=== PATIENT | female | born 1990 | race Two or more races ===

== ENCOUNTER → 2017-06-21 | Outpatient (REF) | payer BC ==
[2017-06-21 17:13] LABS: BASO # 0.1 10^3/uL (0.0-0.2); BASO % 0.8 % (0.0-1.0); EOS # 0.2 10^3/uL (0.0-0.50); EOS % 2.5 % (0.0-3.0); IMMATURE GRANULOCYTE # 0.1 10^3/uL (0-0); IMMATURE GRANULOCYTE % 0.7 % (0-0); LYMPH # 2.9 10^3/uL (1.5-6.5); LYMPH % 38.2 % (24.0-44.0); MEAN CORPUSCULAR HEMOGLOBIN 31.9 pg (27.0-33.0); MEAN CORPUSCULAR VOLUME 91.2 fl (80.0-96.0); MONO # 0.5 10^3/uL (0.0-0.8); MONO % 6.8 % (0.0-5.0); NEUTROPHILS # 3.8 10^3/uL (1.8-7.7); PLATELET COUNT, AUTOMATED 367 10^3/uL (150-450); RED CELL DISTRIBUTION WIDTH 12.3 % (11.5-14.5); WHITE BLOOD COUNT 7.5 10^3/uL (4.0-10.0)
[2017-06-21 17:30] LABS: ALBUMIN 4.5 GM/DL (3.2-5.2); ALKALINE PHOSPHATASE 70 U/L (45-117); ALT/SGPT 67 U/L (12-78); ANION GAP 7 MEQ/L (8-16); AST/SGOT 31 U/L (7-37); BILIRUBIN,TOTAL 0.5 MG/DL (0.2-1.0); BLOOD UREA NITROGEN 13 MG/DL (7-18); CALCIUM LEVEL 8.7 MG/DL (8.5-10.1); CARBON DIOXIDE LEVEL 31 MEQ/L (21-32); CHLORIDE LEVEL 104 MEQ/L (98-107); CHOLESTEROL LEVEL 228 MG/DL (<200); CREATININE FOR GFR 0.78 MG/DL (0.55-1.02); GLOMERULAR FILTRATION RATE > 60.0 (>60); GLUCOSE, FASTING 93 MG/DL (70-105); POTASSIUM SERUM 4.6 MEQ/L (3.5-5.1); SODIUM LEVEL 142 MEQ/L (136-145); TOTAL PROTEIN 7.5 GM/DL (6.4-8.2); TRIGLYCERIDES LEVEL 165 MG/DL (<150)
== END ==
LOC: M SFHCADAM 09:41
DX: Z00.00 Encounter for general adult medical examination without abnormal findings (principal); E28.2 Polycystic ovarian syndrome; E66.01 Morbid (severe) obesity due to excess calories
CPT/HCPCS: 84443

== ENCOUNTER → 2017-07-10 | Outpatient (CLI) | payer BC | LOC: M ADAMS 13:43 | DX: M54.2 Cervicalgia (principal); E66.01 Morbid (severe) obesity due to excess calories; M54.5 Low back pain | CPT/HCPCS: 72050 ==

== ENCOUNTER → 2017-08-23 | Outpatient (CLI) | payer BC ==
[2017-08-23 16:44] LABS: BASO % 0.5 % (0.0-1.0); EOS % 0.4 % (0.0-3.0); HEMATOCRIT 43.8 % (36.0-47.0); IMMATURE GRANULOCYTE % 0.3 % (0-3.0); LYMPH # 1.8 10^3/uL (1.5-6.5); LYMPH % 22.6 % (24.0-44.0); MEAN CORPUSCULAR HEMOGLOBIN 31.6 pg (27.0-33.0); MEAN CORPUSCULAR HGB CONC 34.2 g/dl (32.0-36.5); MEAN CORPUSCULAR VOLUME 92.2 fl (80.0-96.0); MONO # 0.6 10^3/uL (0.0-0.8); MONO % 6.9 % (0.0-5.0); NEUTROPHILS # 5.5 10^3/uL (1.8-7.7); NEUTROPHILS % 69.3 % (36.0-66.0); PLATELET COUNT, AUTOMATED 381 10^3/uL (150-450); RED BLOOD COUNT 4.75 10^6/uL (4.00-5.40); RED CELL DISTRIBUTION WIDTH 12.8 % (11.5-14.5); WHITE BLOOD COUNT 7.9 10^3/uL (4.0-10.0)
[2017-08-23 17:04] LABS: ALBUMIN 4.9 GM/DL (3.2-5.2); ALBUMIN/GLOBULIN RATIO 1.48 (1.00-1.93); ALKALINE PHOSPHATASE 56 U/L (45-117); ALT/SGPT 87 U/L (12-78); ANION GAP 7 MEQ/L (8-16); AST/SGOT 44 U/L (7-37); BILIRUBIN,TOTAL 0.4 MG/DL (0.2-1.0); BLOOD UREA NITROGEN 11 MG/DL (7-18); CALCIUM LEVEL 9.6 MG/DL (8.5-10.1); CARBON DIOXIDE LEVEL 30 MEQ/L (21-32); CHLORIDE LEVEL 105 MEQ/L (98-107); CREATININE FOR GFR 0.85 MG/DL (0.55-1.30); GLOMERULAR FILTRATION RATE > 60.0 (>60); GLUCOSE, FASTING 98 MG/DL (70-100); LIPASE 104 U/L (73-393); POTASSIUM SERUM 4.1 MEQ/L (3.5-5.1); SODIUM LEVEL 142 MEQ/L (136-145); THYROID STIMULATING HORMONE 0.426 uIU/ML (0.358-3.740); TOTAL PROTEIN 8.2 GM/DL (6.4-8.2)
== END ==
LOC: M ADAMS 09:49
DX: R11.2 Nausea with vomiting, unspecified (principal)
CPT/HCPCS: 83690

== ENCOUNTER → 2017-08-27 | Outpatient (CLI) | payer BC | LOC: M RAD 13:04 | DX: M26.69 Other specified disorders of temporomandibular joint (principal) ==

== ENCOUNTER → 2019-07-25 | Outpatient (CLI) | payer BC ==
[2019-07-25 17:32] LABS: BASO % 0.5 % (0.0-1.0); EOS # 0.1 10^3/uL (0.0-0.5); EOS % 1.7 % (0.0-3.0); HEMATOCRIT 45.5 % (36.0-47.0); HEMOGLOBIN 14.7 g/dl (12.0-15.5); LYMPH # 2.9 10^3/uL (1.5-5.0); LYMPH % 37.7 % (24.0-44.0); MEAN CORPUSCULAR HEMOGLOBIN 31.1 pg (27.0-33.0); MEAN CORPUSCULAR HGB CONC 32.3 g/dl (32.0-36.5); MEAN CORPUSCULAR VOLUME 96.4 fl (80.0-96.0); MONO # 0.7 10^3/uL (0.0-0.8); MONO % 8.9 % (0.0-5.0); NEUTROPHILS % 50.9 % (36.0-66.0); PLATELET COUNT, AUTOMATED 318 10^3/uL (150-450); RED BLOOD COUNT 4.72 10^6/uL (4.00-5.40); WHITE BLOOD COUNT 7.8 10^3/uL (4.0-10.0)
[2019-07-25 18:04] LABS: C REACTIVE PROTEIN QUANTITATIV 0.35 MG/DL (0.00-0.30); CHOLESTEROL LEVEL 198 MG/DL (<200); HDL CHOLESTEROL 60 MG/DL (>40); LDL CHOLESTEROL 113 MG/DL (<100); NON-HDL-C 138 MG/DL; RHEUMATOID FACTOR QUANT < 10.0 IU/ML (<15.0); TRIGLYCERIDES LEVEL 124 MG/DL (<150)
[2019-07-26 05:57] LABS: ERYTHROCYTE SEDIMENTATION RATE 5 mm/hr (0-20)
== END ==
LOC: M LABDRWAD 10:39
PROVIDERS: ATTEND Registered Nurse Community Health
DX: Z13.220 Encounter for screening for lipoid disorders (principal); G56.03 Carpal tunnel syndrome, bilateral upper limbs; M25.532 Pain in left wrist; M25.531 Pain in right wrist

== ENCOUNTER → 2019-08-02 | Outpatient (REF) | payer BC | LOC: M SFHCWAGY 17:17 | PROVIDERS: ATTEND Obstetrics & Gynecology | DX: Z12.4 Encounter for screening for malignant neoplasm of cervix (principal) ==

== ENCOUNTER → 2019-08-10 | Outpatient (CLI) | payer BC ==
[~2019-08-10] MED LIST: CONRAY-43 43% 50ML VIAL (Q9960) As Ordered ONE; ISOVUE-370 76% 100ML VIAL (Q9967) As Ordered ONE
--- NOTE | 2019-08-10 15:56 | REP ---
The procedure was performed by HARSHA Castañeda, under the direct supervision of Dr. Washington. The images were reviewed with Dr. Washington. The patient was referred for a hysterosalpingogram. The referring clinician catheterized the cervix and injected contrast while I obtained fluoroscopic images. The uterine cavity opacifies well and appears normal in configuration with no definite contour abnormalities or filling defect. There is free passage of contrast material through both non dilated fallopian tubes, and there appears to be free intraperitoneal spillage bilaterally. Impression: 1. Bilateral fallopian tubes appear patent. 0.2 minutes of fluoroscopy time was utilized for this procedure. Some fluoroscopic images are performed with last image hold technology. These images require no additional radiation. Reviewed by HARSHA Herrera 08/10/2019 03:35 P Electronically Signed by Chago Washington MD 08/10/2019 03:48 P
== END ==
LOC: M RADPRO 11:59
PROVIDERS: ATTEND Obstetrics & Gynecology
DX: N97.0 Female infertility associated with anovulation (principal)
CPT/HCPCS: 58340; 74740; Q9967

== ENCOUNTER → 2019-08-19 | Outpatient (CLI) | payer BC ==
--- NOTE | 2019-08-20 16:55 | ECGEPIP ---
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 Electronically Signed on 08-20-2019 16:54:46 EST by Ino Knapp
== END ==
LOC: M EKG 12:53
PROVIDERS: ATTEND Orthopaedic Surgery Hand Surgery
DX: Z01.810 Encounter for preprocedural cardiovascular examination (principal); G56.01 Carpal tunnel syndrome, right upper limb; I10 Essential (primary) hypertension

== ENCOUNTER → 2019-09-18 | Outpatient (CLI) | payer BC ==
--- NOTE | 2019-09-18 14:20 | REP ---
Clinical: Cough and shortness of breath . Comparison: None . Technique: PA and lateral. Findings: The mediastinum and cardiac silhouette are normal. The lung roy are clear and without acute consolidation, effusion, or pneumothorax. The skeletal structures are intact and normal. Impression: 1. No acute cardiopulmonary process. Electronically Signed by Ron Fraser MD 09/18/2019 02:12 P
== END ==
LOC: M WUC 13:58
PROVIDERS: ATTEND Physician Assistant
DX: R05 Cough (principal); R06.02 Shortness of breath

== ENCOUNTER → 2019-11-01 | Outpatient (CLI) | payer BC ==
[~2019-11-01] MED LIST changes: +ATEN25TA PO; -CONRAY-43 43% 50ML VIAL (Q9960) As Ordered ONE; +FAMO20TA PO; +FLUO40CA PO; +GABA-843 PO; +HYDR-643 PO; -ISOVUE-370 76% 100ML VIAL (Q9967) As Ordered ONE; +LOSA25TA14 PO; +QUET1TAB7 PO; +VITA50005 PO
== END ==
LOC: M LABSMTC 11:44
PROVIDERS: ATTEND Anesthesiology
DX: Z01.818 Encounter for other preprocedural examination (principal); Z11.59 Encounter for screening for other viral diseases

== ENCOUNTER 2019-11-03 12:10 | Day surgery (SDC) | payer BC ==
[~2019-11-03] VITALS: Ht 157.5 cm; Wt 93.4 kg
[~2019-11-03 12:10] MED LIST changes: +BUPIVACAINE/EPIN 0.25% 30 ML VIAL As Ordered ONE; +LIDOCAINE 1% MDV 20ML VIAL SQ PRN; +LR 1,000 ML IV ONE
[2019-11-03] MEDS ORDERED: MIDAZOLAM INJ 2MG/2ML VIAL (J2250 PER 1MG) As Ordered ONE (13:41)
[2019-11-03] MEDS ORDERED: fentaNYL 100 MCG/2 ML INJECTION (J3010) As Ordered ONE (13:41)
[2019-11-03] MEDS ORDERED: ONDANSETRON 4MG/2ML VIAL As Ordered ONE (13:43)
[2019-11-03] MEDS ORDERED: propofoL 200 MG/20 ML VIAL As Ordered ONE ×2 (13:43→14:20)
[2019-11-03] MEDS ORDERED: dexameTHASONE 4 MG/ML 1ML VIAL (J1100 PER 1MG) As Ordered ONE (13:43)
[2019-11-03] MEDS ORDERED: LIDOCAINE 2% 100MG/5ML SDV (FOR ANES.) As Ordered ONE (13:43)
[2019-11-03] MEDS ORDERED: ACETAMINOPHEN 1000MG 100ML IV BTL (OFIRMEV) (J0131 PER 10MG) As Ordered ONE (14:23)
[2019-11-03] MEDS ORDERED: ePHEDrine SULFATE 25 MG/5 ML(5MG/ML) SYRINGE As Ordered ONE (14:51)
[2019-11-03] MEDS: oxyCODONE 5MG TAB PO PRN ×2 (15:19→16:10)
[2019-11-03] MEDS: fentaNYL 100 MCG/2 ML INJECTION (J3010) IV PRN ×2 (15:22→15:28)
[2019-11-03] MEDS ORDERED: ONDANSETRON 4MG/2ML VIAL IV PRN (15:30)
[2019-11-03] MEDS ORDERED: LR 1,000 ML IV SCH (15:30)
[2019-11-03 17:45] VITALS: BP 130/76
--- NOTE | 2019-11-07 14:02 | RO ---
DATE OF PROCEDURE: 11/03/2019 PREPROCEDURE DIAGNOSIS: Right carpal and cubital tunnel syndrome. POSTPROCEDURE DIAGNOSIS: Right carpal and cubital tunnel syndrome. PROCEDURE: Right endoscopic carpal tunnel release and open cubital tunnel release SURGEON: Dr. Yassine Hermosillo. HEAD OF STOCK: DON Van who was essential for retraction during rudd portions of the procedure. ANESTHESIA: General. ESTIMATED BLOOD LOSS: Minimal. TOURNIQUET TIME: Approximately 25 minutes. PREOPERATIVE ANTIBIOTICS: None. INDICATION: This is a 29-year-old female who failed nonoperative modes of treatment. We discussed the risks and benefits of surgical release, including, but not limited to, infection, damage to surrounding structures, incomplete relief, and patient wishes to proceed. DESCRIPTION OF PROCEDURE: The patient was brought back to the operating room (OR) in the supine position. Underwent general anesthesia. At which point, the right arm was prepped and draped in the usual fashion. We had a time-out confirming site, side and surgery. Once all in agreement, we injected 20 mL of 0.25% Marcaine with epinephrine local injection overlying the surgical incisions. We then made a transverse incision over the palmaris longus, retracted it out radially and sharply incised through the antebrachial fascia, elevated with a two-prong skin hook. Inserted the dilator and synovial stripper and endoscopic camera. Once the median nerve identified and safely out of view, we released the transverse carpal ligament from distal to proximal. Once this was adequately released, we irrigated the wound thoroughly, closed with #3-0 Vicryl, #3-0 Prolene, Mastisol. Steri-Strips and gauze, Tegaderm. We then turned our attention to the elbow and made a longitudinal incision between the medial epicondyle and the olecranon. Sharply dissected through the subcutaneous tissue, careful to monitor for the medial antebrachial cutaneous nerve. We identified the ulnar nerve at the proximal extent of the incision anterior to the medial head of the triceps. We then released it proximally off the intermuscular system and distally throughout Banuelos ligament and the superficial and deep fascia of the flexor carpi ulnaris (FCU). At this point, we did a thorough neurolysis, and transposed the nerve anteriorly over the medial epicondyle. Ranged the elbow. We were happy with its positioning and no further compression. Closed the Banuelos ligament posteriorly with #3-0 Prolene. At which point, irrigated the wound thoroughly, closed with #3-0 Vicryl, subcuticular and #3-0 Monocryl, Mastisol, Steri-Strips, gauze, Tegaderm. Placed the Kerlix and ramila over top. The tourniquet was let down. The patient was awakened and taken to the postanesthesia care unit (PACU) in stable condition. POSTOP PLAN: The patient will work on pain control and range of motion. We will see her in 2 weeks for wound check at that time.
== END 2019-11-03 17:50 | disposition home or self-care (01) ==
LOC: M SDC 12:10
PROVIDERS: ATTEND Orthopaedic Surgery Hand Surgery
DX: G56.01 Carpal tunnel syndrome, right upper limb (principal); G56.21 Lesion of ulnar nerve, right upper limb; I10 Essential (primary) hypertension; K21.9 Gastro-esophageal reflux disease without esophagitis; R51 Headache; Z79.899 Other long term (current) drug therapy; F12.10 Cannabis abuse, uncomplicated
CPT/HCPCS: 29848; 64718; J0131; J1100; J2250; J2405; J3010

== ENCOUNTER 2019-12-21 22:29 | Emergency (ER) | payer BC ==
[~2019-12-21] VITALS: Ht 157.5 cm; Wt 96.6 kg
[~2019-12-21 22:29] MED LIST changes: -BUPIVACAINE/EPIN 0.25% 30 ML VIAL As Ordered ONE; -LIDOCAINE 1% MDV 20ML VIAL SQ PRN; -LR 1,000 ML IV ONE
[2019-12-21] MEDS ORDERED: NALT50TA4 (23:07)
[2019-12-21 23:41] LABS: HEMOGLOBIN 13.4 g/dl (12.0-15.5); MEAN CORPUSCULAR HEMOGLOBIN 32.4 pg (27.0-33.0); MEAN CORPUSCULAR HGB CONC 33.5 g/dl (32.0-36.5); MEAN CORPUSCULAR VOLUME 96.9 fl (80.0-96.0); PLATELET COUNT, AUTOMATED 376 10^3/uL (150-450); RED BLOOD COUNT 4.13 10^6/uL (4.00-5.40); WHITE BLOOD COUNT 7.5 10^3/uL (4.0-10.0)
[2019-12-21] MEDS ORDERED: ISOVUE-370 76% 100ML VIAL As Ordered ONE (23:43)
[2019-12-21] MEDS ORDERED: NS 1,000 ML IV ONE (23:45)
[2019-12-21] MEDS ORDERED: ONDANSETRON 4MG/2ML VIAL IV ONE (23:45)
[2019-12-21] MEDS ORDERED: KETOROLAC 30 MG/ML 1ML VIAL IV ONE (23:45)
[2019-12-22 00:02] LABS: ALBUMIN 4.3 GM/DL (3.2-5.2); BILIRUBIN,DIRECT 0.1 MG/DL (0.0-0.2); BILIRUBIN,TOTAL 0.1 MG/DL (0.2-1.0); TOTAL PROTEIN 7.8 GM/DL (6.4-8.2)
--- NOTE | 2019-12-22 00:24 | REPVR ---
PROCEDURE INFORMATION: Exam: CT Abdomen And Pelvis With Contrast Exam date and time: 12/21/2019 11:38 PM Age: 29 years old Clinical indication: Abdominal pain; Generalized; Additional info: Peritonitis, sudden onset, diarrhea x months TECHNIQUE: Imaging protocol: Computed tomography of the abdomen and pelvis with intravenous contrast. Radiation optimization: All CT scans at this facility use at least one of these dose optimization techniques: automated exposure control; mA and/or kV adjustment per patient size (includes targeted exams where dose is matched to clinical indication); or iterative reconstruction. Contrast material: ISO; Contrast volume: 100 ml; Contrast route: INTRAVENOUS (IV); COMPARISON: XA Hysterosalpingogram 08/10/2019 12:24 PM FINDINGS: Liver: Fatty infiltration of the liver. Gallbladder and bile ducts: Normal. No calcified stones. No ductal dilation. Pancreas: Normal. No ductal dilation. Spleen: Normal. No splenomegaly. Adrenals: Normal. No mass. Kidneys and ureters: Normal. No hydronephrosis. Stomach and bowel: Moderate stool in the right colon. No abnormal bowel dilatation. No abnormal bowel wall thickening. Negative for colonic diverticulitis. Appendix: The appendix is not seen. However, there is no evidence of appendicitis. Intraperitoneal space: Trace fluid in the cul-de-sac. No free air. Vasculature: Unremarkable. No abdominal aortic aneurysm. Lymph nodes: Unremarkable. No enlarged lymph nodes. Bladder: Unremarkable as visualized. Reproductive: Uterus is unremarkable. Bones/joints: No acute fracture. Healing fracture of the right 7th rib laterally. Bilateral L5 spondylolysis. Soft tissues: Unremarkable. IMPRESSION: 1. No CT findings to suggest source of acute abdominal pain. 2. Fatty infiltration of the liver. 3. Trace fluid in the cul-de-sac. 4. Healing fracture of the right 7th rib laterally. 5. Additional findings as described. Electronically signed by: Aubrey Ramon On 12/22/2019 00:23:39 AM
[2019-12-22] MEDS ORDERED: DICYCLOMINE 10 MG CAP PO ONE (01:30)
[2019-12-22] MEDS ORDERED: GI COCKTAIL 50ML BTL(HYOSCYAMINE/MAALOX/LIDOCAINE VISCOUS)(1:3:1) PO ONE (01:30)
--- NOTE | 2019-12-22 02:35 | REPVR ---
PROCEDURE INFORMATION: Exam: US Pelvis Complete, Transabdominal and US Pelvis, Transvaginal Exam date and time: 12/22/2019 2:18 AM Age: 29 years old Clinical indication: Pelvic pain; Additional info: Very tender, HX pcos, R/O torsion L TECHNIQUE: Imaging protocol: Real-time transabdominal and transvaginal pelvic ultrasound (complete) with image documentation. Transvaginal imaging was used for better evaluation of the endometrium and adnexa. COMPARISON: CT ABD/PEL W/IV CONTRAST ONLY 12/22/2019 12:01 AM FINDINGS: Uterus/cervix: Uterus measures 7.4 x 3.1 x 4.9 cm. Endometrial stripe measures 3.8 mm thick. No uterine masses. Uterus is anteverted. Right adnexa: Right ovary measures 2.1 x 2.9 x 1.7 cm. Normal vascular flow. No masses. No evidence of torsion. Approximate 4 follicles seen on single view. Left adnexa: Left ovary measures 2.6 x 2.1 x 1.8 cm. Normal vascular flow. No masses. No evidence of torsion. Approximate 2 follicles seen on single view. Free fluid: None. Bladder: Bladder is distended. No bladder wall thickening. IMPRESSION: 1. Unremarkable pelvic ultrasound. 2. No evidence of polycystic ovarian disease. 3. No evidence of ovarian torsion. Electronically signed by: Aubrey Ramon On 12/22/2019 02:34:48 AM
[2019-12-22] MEDS ORDERED: DICY10CA13 PO (02:37)
[2019-12-22 02:43] VITALS: BP 169/88
== END 2019-12-22 02:45 | disposition home or self-care (01) ==
LOC: M ED 22:29
DX: R10.9 Unspecified abdominal pain (principal); R19.7 Diarrhea, unspecified; K76.0 Fatty (change of) liver, not elsewhere classified; Z79.899 Other long term (current) drug therapy
CPT/HCPCS: 74177; 76830; 76856; 80047; 80076; 81001; 83690; 84702; 85027; 87086; 93976; 96361; 96374; 96375; 99284; J1885; J2405; Q9967

== ENCOUNTER 2020-01-21 23:02 | Emergency (ER) | payer BC ==
[~2020-01-21 23:02] MED LIST changes: +DICY10CA13 PO; +NALT50TA4
[2020-01-22] MEDS ORDERED: LIDOCAINE W/EPINEPHRINE 1% 20ML VIAL ONE (02:07)
[2020-01-22] MEDS ORDERED: LIDOCAINE W/EPINEPHRINE 1% 20ML VIAL As Ordered ONE (02:07)
[2020-01-22] MEDS ORDERED: AUGMENTIN 875 MG TAB ONE (03:35)
[2020-01-22] MEDS ORDERED: AUGMENTIN 875 MG TAB As Ordered ONE (03:35)
== END 2020-01-22 03:47 | disposition home or self-care (01) ==
LOC: M ED 23:02
DX: S01.151A Open bite of right eyelid and periocular area, initial encounter (principal); S01.551A Open bite of lip, initial encounter; W54.0XXA Bitten by dog, initial encounter; K21.9 Gastro-esophageal reflux disease without esophagitis; F32.9 Major depressive disorder, single episode, unspecified; F41.9 Anxiety disorder, unspecified; Z79.899 Other long term (current) drug therapy

== ENCOUNTER → 2020-05-26 | Outpatient (REF) | payer BC ==
[2020-05-26 10:49] LABS: HEMATOCRIT 42.6 % (36.0-47.0); HEMOGLOBIN 14.5 g/dl (12.0-15.5); MEAN CORPUSCULAR HEMOGLOBIN 31.9 pg (27.0-33.0); MEAN CORPUSCULAR VOLUME 93.6 fl (80.0-96.0); PLATELET COUNT, AUTOMATED 314 10^3/uL (150-450); RED BLOOD COUNT 4.55 10^6/uL (4.00-5.40); WHITE BLOOD COUNT 11.4 10^3/uL (4.0-10.0)
[2020-05-26 12:09] LABS: HEPATITIS C VIRUS ABY INDEX 0.1 INDEX (<0.8); HIV 1&2 SCREEN CENTAUR NEGATIVE (NEGATIVE)
== END ==
LOC: M PLALAB 08:26
PROVIDERS: ATTEND Advanced Practice Midwife
DX: Z34.01 Encounter for supervision of normal first pregnancy, first trimester (principal)

== ENCOUNTER → 2020-05-26 | Outpatient (CLI) | payer BC ==
--- NOTE | 2020-05-26 09:24 | REP ---
INDICATION: ??TWIN GESTATION. COMPARISON: None. TECHNIQUE: Transabdominal and transvaginal scanning. FINDINGS: Scanning demonstrates a a single living intrauterine gestation in a free-floating lie. The crown-rump length of the living gestation is 22 mm. This corresponds with a gestational age estimate of 8 weeks 6 days. For its heart rate is recorded at 181 beats per minute. Closed cervical length is 3.7 cm view transabdominally. A 2nd gestational sac with no internal components is seen adjacent to the viable . This measures 1.8 x 1.1 x 0.9 cm. Blighted twin versus subchorionic fluid collection.. This 2nd sac contains no embryonic pole or yolk sac. No extra uterine abnormality is observed. IMPRESSION: Viable single intrauterine gestation at 8 weeks 6 days by today's composite sonographic criteria. ZANDRA by today's sonography December 30, 2020. There is a 2nd smaller gestational sac adjacent to the viable without internal components. No yolk sac or embryonic pole in the 2nd smaller sac. Possible blighted twin. Consider sonographic follow-up.. <Electronically signed by Merrick Washington > 05/26/20 [id number]
== END ==
LOC: M WHC 07:59
PROVIDERS: ATTEND Advanced Practice Midwife
DX: Z34.01 Encounter for supervision of normal first pregnancy, first trimester (principal); Z3A.08 8 weeks gestation of pregnancy

== ENCOUNTER → 2020-06-20 | Outpatient (REF) | payer BC | LOC: M SFHCWAGY 16:42 | PROVIDERS: ATTEND Advanced Practice Midwife | DX: Z34.01 Encounter for supervision of normal first pregnancy, first trimester (principal); Z3A.00 Weeks of gestation of pregnancy not specified ==

== ENCOUNTER → 2020-08-09 | Outpatient (CLI) | payer BC ==
[~2020-08-09] MED LIST changes: +GABA-282 PO; -GABA-843 PO; -QUET1TAB7 PO; +QUET25TA3 PO
[2020-08-09 20:49] LABS: CHLAMYDIA DNA AMPLIFICATION NEGATIVE (NEGATIVE); GC DNA AMPLIFICATION NEGATIVE (NEGATIVE)
== END ==
LOC: M PLALAB 14:41
PROVIDERS: ATTEND Advanced Practice Midwife
DX: Z34.82 Encounter for supervision of other normal pregnancy, second trimester (principal); Z3A.17 17 weeks gestation of pregnancy

== ENCOUNTER → 2020-08-14 | Outpatient (CLI) | payer BC ==
--- NOTE | 2020-08-14 09:38 | REP ---
INDICATION: ANATOMY. ZANDRA by 8 weeks 6 days sonography 30 December 2020. COMPARISON: Comparison sonography 26 May 2020.. TECHNIQUE: Transabdominal obstetric sonography. FINDINGS: Scanning through the gravid uterus demonstrates a viable single intrauterine gestation in breech lie. motion is observed and heart rate is recorded at 144 beats per minute. A posterior placenta is seen, grade 1, without evidence of placenta previa. Closed cervical length is measured at 3.2 cm transabdominally. No extrauterine abnormality is observed. Amniotic fluid is subjectively normal. The following anatomic structures were less than optimally seen due to position: Face and profile, four-chamber heart and left and right ventricular outflow tract views. A 2 vessel umbilical cord is noted in this patient. The following additional anatomic structures are identified felt to be unremarkable: cranium, intracranial contents, nose and lips, diaphragm, left-sided stomach, abdominal wall cord insertion, bilateral kidneys, urinary bladder, spine, upper and lower extremities.. Biometry chart: BPD 4.6 cm, 20 weeks 0 days Head circumference 17.6 cm, 20 weeks 1 day Abdominal circumference 15.1 cm, 20 weeks 3 days Femur length 3.4 cm, 20 weeks 4 days Humeral length 3.3 cm, 21 weeks 2 days HC AC ratio normal 1.16 Cephalic index normal 0.72 Estimated weight 352 g, 0 lb 12 oz, 44th percentile for 20 weeks 3 days IMPRESSION: Viable single intrauterine gestation at 20 weeks 3 days by today's composite sonographic criteria. ZANDRA by today's sonography December 29 2020. No complication identified. ZANDRA established by prior sonography at 8 weeks 6 days is 30 December 2020. Evidence of appropriate interval growth. <Electronically signed by Merrick Washington > 08/14/20 0951
== END ==
LOC: M WHC 07:02
PROVIDERS: ATTEND Advanced Practice Midwife
DX: Z36.89 Encounter for other specified antenatal screening (principal); Z3A.20 20 weeks gestation of pregnancy

== ENCOUNTER → 2020-08-29 | Outpatient (CLI) | payer BC ==
--- NOTE | 2020-08-29 09:40 | REP ---
INDICATION: F/U ANATOMY/ZANDRA 12/26/20/GROWTH,2 V CORD COMPARISON: 08/14/2020 TECHNIQUE: Transabdominal obstetrical ultrasound with color Doppler evaluation. FINDINGS: Examination demonstrates a single live intrauterine in cephalic presentation. motion is identified by technologist. Placenta is noted posterior and grade 1 without evidence for placenta previa or abruption. Amniotic fluid volume is normal. Cervix measures 3.0 cm in length and appears closed.. Gestational age by selected ZANDRA 22 weeks 4 days with ZANDRA at 12/29/2020 Gestational age by LMP 23 weeks 5 days with ZANDRA 12/21/2020. Gestational age by current measurements 23 weeks 0 days with ZANDRA 12/26/2020. FHR equals 143 beats per minute. Estimated weight 506 grams (38th percentile based on age by selected ZANDRA). Anatomical assessment demonstrates normal structures including cranium, facial profile, four-chamber heart/ventricular outflow tracts, stomach, kidneys/bladder. Two vessel cord again noted. IMPRESSION: 1. Single live intrauterine in cephalic presentation. Estimated weight is normal based on selected age by ZANDRA. 2. In conjunction with prior examination anatomical assessment is complete and normal. Two vessel cord again noted. <Electronically signed by Ron Fraser > 08/29/20 [id number]
== END ==
LOC: M WHC 08:35
PROVIDERS: ATTEND Advanced Practice Midwife
DX: Z36.89 Encounter for other specified antenatal screening (principal); Z3A.23 23 weeks gestation of pregnancy

== ENCOUNTER → 2020-09-14 | Outpatient (CLI) | payer BC | LOC: M PLALAB 09:41 | PROVIDERS: ATTEND Advanced Practice Midwife | DX: Z34.82 Encounter for supervision of other normal pregnancy, second trimester (principal); Z3A.00 Weeks of gestation of pregnancy not specified ==

== ENCOUNTER → 2020-09-21 | Outpatient (CLI) | payer BC ==
--- NOTE | 2020-09-26 11:00 | REP ---
INDICATION: GROWTH/2V CORD COMPARISON: 08/29/2020 TECHNIQUE: Transabdominal obstetrical ultrasound with color Doppler evaluation. FINDINGS: Examination demonstrates a single live intrauterine in cephalic presentation. motion is identified by technologist. Placenta is noted posterior and grade 1 without evidence for placenta previa or abruption. Amniotic fluid volume is normal. Cervix measures 3.4 cm in length and appears closed.. Gestational age by LMP and 1st U/S 27 weeks 0 days with ZANDRA 12/21/2020. Gestational age by current measurements 27 weeks 1 day with ZANDRA 12/20/2020. FHR equals 126 beats per minute. ESAU: 16.8 cm Estimated weight 1038 grams (89thpercentile based on age by effective ZANDRA at 25 weeks 6 days). IMPRESSION: Single live intrauterine in cephalic presentation. Growth and estimated weight as noted above. <Electronically signed by Ron Fraser > 09/26/20 [id number]
== END ==
LOC: M WHC 13:29
PROVIDERS: ATTEND Advanced Practice Midwife
DX: Z36.2 Encounter for other antenatal screening follow-up (principal); Z3A.27 27 weeks gestation of pregnancy

== ENCOUNTER → 2020-10-03 | Outpatient (REF) | payer BC ==
[2020-10-03 13:38] LABS: HEMATOCRIT 34.7 % (36.0-47.0); HEMOGLOBIN 11.7 g/dl (12.0-15.5); MEAN CORPUSCULAR HEMOGLOBIN 33.3 pg (27.0-33.0); MEAN CORPUSCULAR HGB CONC 33.7 g/dl (32.0-36.5); MEAN CORPUSCULAR VOLUME 98.9 fl (80.0-96.0); PLATELET COUNT, AUTOMATED 268 10^3/uL (150-450); RED BLOOD COUNT 3.51 10^6/uL (4.00-5.40); WHITE BLOOD COUNT 12.9 10^3/uL (4.0-10.0)
== END ==
LOC: M PLALAB 10:14
PROVIDERS: ATTEND Advanced Practice Midwife
DX: Z34.92 Encounter for supervision of normal pregnancy, unspecified, second trimester (principal); Z3A.25 25 weeks gestation of pregnancy

== ENCOUNTER → 2020-10-10 | Outpatient (REF) | payer BC | LOC: M SFHCWAGY 12:26 | PROVIDERS: ATTEND Advanced Practice Midwife | DX: O47.03 False labor before 37 completed weeks of gestation, third trimester (principal) ==

== ENCOUNTER → 2020-10-10 | Outpatient (REF) | payer BC ==
[2020-10-10 19:09] LABS: APPEARANCE, URINE CLEAR (CLEAR); BACTERIA, URINE AUTO 1+ (NEGATIVE); BILIRUBIN, URINE AUTO NEGATIVE (NEGATIVE); BLOOD, URINE BLOOD NEGATIVE (NEGATIVE); COLOR, URINE YELLOW (YELLOW); GLUCOSE, URINE (UA) AUTO NEGATIVE (NEGATIVE); KETONE, URINE AUTO NEGATIVE (NEGATIVE); LEUKOCYTE ESTERASE, URINE AUTO NEGATIVE (NEGATIVE); MUCUS, URINE SMALL (NEGATIVE); NITRITE, URINE AUTO NEGATIVE (NEGATIVE); PROTEIN, URINE AUTO NEGATIVE (NEGATIVE); RBC, URINE AUTO 2 /HPF (0-3); SPECIFIC GRAVITY URINE AUTO 1.012 (1.002-1.035); SQUAMOUS EPITHELIAL CELL UR AU 2 /HPF (0-6); UROBILINOGEN, URINE AUTO 0.2 mg/dL (0.0-2.0); WBC, URINE AUTO 2 /HPF (0-3)
== END ==
LOC: M SFHCWAGY 17:51
PROVIDERS: ATTEND Advanced Practice Midwife
DX: O47.03 False labor before 37 completed weeks of gestation, third trimester (principal)

== ENCOUNTER → 2020-10-11 | Outpatient (CLI) | payer BC ==
--- NOTE | 2020-10-11 10:22 | REP ---
INDICATION: CONTRACTIONS/CERVICAL LENGTH COMPARISON: 09/21/2020 TECHNIQUE: Transabdominal obstetrical ultrasound with color Doppler evaluation. FINDINGS: Examination demonstrates a single live intrauterine in breech presentation. motion is identified by technologist. Placenta is noted posterior and grade 1 without evidence for placenta previa or abruption. Amniotic fluid volume increased suggesting polyhydramnios.. Cervix measures 4.0 cm in length and appears closed. ESAU: 26.1 cm (9.3-23.0). Gestational age by LMP and 1st U/S 29 weeks 6 days with ZANDRA 12/21/2020. FHR equals 139 beats per minute. IMPRESSION: Cervix measures 4 cm in length and appears closed. Polyhydramnios suggested. <Electronically signed by Ron Fraser > 10/11/20 [id number]
== END ==
LOC: M PLAIMG 09:01
PROVIDERS: ATTEND Advanced Practice Midwife
DX: O47.03 False labor before 37 completed weeks of gestation, third trimester (principal)

== ENCOUNTER → 2020-10-20 | Outpatient (CLI) | payer BC ==
--- NOTE | 2020-10-20 08:59 | REP ---
INDICATION: 2 V CORD,GROWTH. COMPARISON: 10/11/2020. TECHNIQUE: Real-time sonographic evaluation of the gravid uterus performed. FINDINGS: Estimated gestational age is30 weeks 3 days, EDC 12/26/2020. Today's measurements indicate appropriate growth. Presentation: Cephalic Placenta posterior, grade 1, without evidence of placenta previa. A 2 vessel umbilical cord is again noted. heart rate is recorded at 140 beats per minute. Amniotic fluid is subjectively normal. ESAU 20.5, normal range 8.9-21.6. Biometry chart: BPD: 84 mm, 33 weeks 5 days, greater than 95th percentile. HC: 301 mm, 33 weeks 3 days, 95th percentile AC: 276 mm, 31 weeks 5 days, 69th percentile Femur length: 60 mm, 31 weeks 0 days, 59th percentile HC to AC ratio: 1.09, normal range 0.97-1.16. Estimated weight: 1843g, 83rd percentile. SD ratio umbilical artery 2.41, normal range 1.93-4.05. RI 0.58, normal range 0.52-0.76. IMPRESSION: Viable single intrauterine gestation as above. <Electronically signed by Yunior Reece > 10/20/20 [id number]
== END ==
LOC: M WHC 06:55
PROVIDERS: ATTEND Advanced Practice Midwife
DX: Z34.83 Encounter for supervision of other normal pregnancy, third trimester (principal); Z3A.28 28 weeks gestation of pregnancy

== ENCOUNTER → 2020-10-23 | Outpatient (REF) | payer BC | LOC: M PLALAB 10:34 | PROVIDERS: ATTEND Obstetrics & Gynecology | DX: Z34.83 Encounter for supervision of other normal pregnancy, third trimester (principal); Z3A.30 30 weeks gestation of pregnancy ==

== ENCOUNTER → 2020-11-09 | Outpatient (CLI) | payer BC ==
--- NOTE | 2020-11-10 07:11 | REP ---
INDICATION: 2 CORD VESSEL/GROWTH/ZANDRA 12/26/20 COMPARISON: 10/20/2020 TECHNIQUE: Transabdominal obstetrical ultrasound with color Doppler evaluation. FINDINGS: Examination demonstrates a single live intrauterine in cephalic presentation. motion is identified by technologist. Placenta is noted posterior and grade 1 without evidence for placenta previa or abruption. Amniotic fluid volume is normal. Cervix measures 3.8 cm in length and appears closed. Two vessel cord again noted. Gestational age by LMP 34 weeks 0 days with ZANDRA 12/21/2020. Gestational age by ZANDRA of 12/26/2020 at 33 weeks 2 days. Gestational age by current measurements 34 weeks 2 days with ZANDRA 12/19/2020. FHR equals 127 beats per minute. Estimated weight 2295 grams (60thpercentile). ESAU: 19.9 cm (8.2-24.6) Umbilical artery SD ratio: 2.23 (1.77-3.74) IMPRESSION: Single live intrauterine in cephalic presentation demonstrating appropriate estimated weight. Two vessel cord again noted. <Electronically signed by Ron Fraser > 11/10/20 0707
== END ==
LOC: M WHC 13:34
PROVIDERS: ATTEND Advanced Practice Midwife
DX: Z34.93 Encounter for supervision of normal pregnancy, unspecified, third trimester (principal); Z3A.28 28 weeks gestation of pregnancy

== ENCOUNTER → 2020-11-16 | Outpatient (REF) | payer BC | LOC: M SFHCWAGY 12:44 | PROVIDERS: ATTEND Advanced Practice Midwife | DX: O10.013 Pre-existing essential hypertension complicating pregnancy, third trimester (principal); Z3A.00 Weeks of gestation of pregnancy not specified ==

== ENCOUNTER 2020-11-18 22:18 | Outpatient (CLI) | payer BC ==
[~2020-11-18] VITALS: Ht 157.5 cm; Wt 98.6 kg
[2020-11-18 22:26] VITALS: BP 138/93
[2020-11-18 22:43] VITALS: BP 134/78
--- NOTE | 2020-11-18 23:59 | IPNPDOC ---
Obstetrical Progress Note Date of Service November 18, 2020 Subjective 30yo at 34+4 weeks EGA. Presents for a labor check. Reports frequent, painful uterine contractions. No loss of fluid or vaginal bleeding. Reports regular, frequent movement. ROS: No BANKS, visual changes, RUQ pain, sob, cp, n/v/f/c. 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 No STI Meds: PNV All: NKDA O: Predominantly normotensive BP readings, normal HR, afebrile Abd: soft,nt,nd, no fundal tenderness Pelvic/SVE: FT cm, 25 %, -3, cephalic, intact, no bloody show EFM: Cat I / Reactive [place]: contractions every 3-5min; palpated as mild. A/P: 30 yo at 34+4 weeks EGA. Latent labor; no evidence of active labor or ROM. Reassuring maternal and status. -Routine third trimester precautions given. -Follow up in office as scheduled. Vital Signs Date Time Temp Pulse Resp B/P (MAP) Pulse Ox O2 Delivery O2 Flow Rate FiO2 11/18/20 22:43 123 134/78 (96) 11/18/20 22:26 98.2 136 20 138/93 (108) Jes Harris DO FACOG. Objective Vital Signs Date Time Temp Pulse Resp B/P (MAP) Pulse Ox O2 Delivery O2 Flow Rate FiO2 11/18/20 22:43 123 134/78 (96) 11/18/20 22:26 98.2 JESSICA HOYOS DO November 18, 2020 23:59
== END 2020-11-18 23:55 | disposition home or self-care (01) ==
LOC: M LDO 22:18
PROVIDERS: ATTEND Obstetrics & Gynecology
DX: O47.03 False labor before 37 completed weeks of gestation, third trimester (principal); O10.013 Pre-existing essential hypertension complicating pregnancy, third trimester; Z3A.34 34 weeks gestation of pregnancy

== ENCOUNTER → 2020-11-23 | Outpatient (REF) | payer BC | LOC: M SFHCWAGY 13:10 | PROVIDERS: ATTEND Advanced Practice Midwife | DX: O10.013 Pre-existing essential hypertension complicating pregnancy, third trimester (principal); Z3A.00 Weeks of gestation of pregnancy not specified ==

== ENCOUNTER → 2020-11-24 | Outpatient (CLI) | payer BC ==
--- NOTE | 2020-11-27 14:36 | SLEEPCENT ---
NOCTURNAL POLYSOMNOGRAPHY DATE: 11/24/2020 ORDERED BY: AMMON Arevalo Nocturnal polysomnography was performed for evaluation of sleep physiology in this patient with excessive somnolence and nonrestorative sleep. 8 hours and 17 minutes of data were reviewed. There were 239.5 minutes of sleep identified. Sleep latency was prolonged at 17.5 minutes. REM latency was prolonged at 432 minutes. Sleep architecture showed poor progression. There were prolonged periods of wake resulting in reduced sleep efficiency of 48.8%. One REM cycle was seen late in the study. The electrocardiogram showed a sinus rhythm with a rapid heart rate and average heart rate was 100. Pulse rate range 90 to 120. EEG showed normal waveforms for wake and sleep. There were 95 respiratory events identified of 10 seconds in duration or greater for an apnea-hypopnea index of 23.8. The events were primarily obstructive, not exclusive to sleep stage nor body posture. Arousals from respiratory events occurred four times per hour and oxygen desaturations were seen into the low 80s. There was some scattered limb activity with one train of 30 events. Limb movement arousal index 6.8. IMPRESSION: Obstructive sleep apnea syndrome (G47.33), apnea-hypopnea index 23.8. RECOMMENDATION: The patient should be encouraged to return [facility]. In the interim, alcohol and sedative avoidance should be practiced and caution exercised during the operation of motor vehicles.
== END ==
LOC: M SLEEP 20:00
PROVIDERS: ATTEND Nurse Practitioner Family
DX: R06.83 Snoring (principal)

== ENCOUNTER → 2020-11-30 | Outpatient (REF) | payer BC ==
[2020-11-30 14:06] LABS: HEMATOCRIT 36.7 % (36.0-47.0); HEMOGLOBIN 12.1 g/dl (12.0-15.5); MEAN CORPUSCULAR HEMOGLOBIN 31.8 pg (27.0-33.0); MEAN CORPUSCULAR VOLUME 96.6 fl (80.0-96.0); PLATELET COUNT, AUTOMATED 199 10^3/uL (150-450); WHITE BLOOD COUNT 10.9 10^3/uL (4.0-10.0)
[2020-11-30 14:58] LABS: ALT/SGPT 15 U/L (12-78); BILIRUBIN,TOTAL 0.3 MG/DL (0.2-1.0); CREATININE FOR GFR 0.51 MG/DL (0.55-1.30); GLOMERULAR FILTRATION RATE > 60.0 (>60); LDH LACTATE DEHYDROGENASE 156 U/L (84-246)
[2020-11-30 16:00] LABS: CREATININE,RANDOM URINE 99.7 MG/DL
== END ==
LOC: M PLALAB 11:05
PROVIDERS: ATTEND Advanced Practice Midwife
DX: O10.919 Unspecified pre-existing hypertension complicating pregnancy, unspecified trimester (principal)

== ENCOUNTER → 2020-12-01 | Outpatient (CLI) | payer BC ==
--- NOTE | 2020-12-01 08:27 | REP ---
INDICATION: 2V CORD,GROWTH COMPARISON: 11/09/2020 TECHNIQUE: Transabdominal obstetrical ultrasound with color Doppler evaluation. FINDINGS: Examination demonstrates a single live intrauterine in cephalic presentation. motion is identified by technologist. Placenta is noted posterior and grade 1 without evidence for placenta previa or abruption. Amniotic fluid volume is normal. Cervix measures 4.1 cm in length and appears closed.. Selected gestational age: 36 weeks 3 days with ZANDRA 12/26/2020. Gestational age by current measurements 37 weeks 0 days with ZANDRA 12/22/2020. FHR equals 142 beats per minute. BPD: 9.2 cm at 37 weeks 1 day HC: 32.9 cm at 37 weeks 2 days AC: 33.3 cm at 37 weeks 2 days FL: 7.1 cm at 36 weeks 3 days HL: 6.3 cm at 36 weeks 4 days HC/AC: 0.99 Estimated weight 3104 grams (55thpercentile). ESAU: 16.5 cm Umbilical artery SD ratio: 2.02 (1.62-3.48) IMPRESSION: Single live intrauterine in cephalic presentation demonstrating appropriate interval growth. Amniotic fluid volume is within normal limits. <Electronically signed by Ron Fraser > 12/01/20 [id number]
== END ==
LOC: M WHC 06:55
PROVIDERS: ATTEND Advanced Practice Midwife
DX: Z34.82 Encounter for supervision of other normal pregnancy, second trimester (principal); Z3A.28 28 weeks gestation of pregnancy

== ENCOUNTER 2020-12-06 07:03 | Inpatient (IN) | payer BC ==
[~2020-12-06] VITALS: Ht 157.5 cm; Wt 99.0 kg
[2020-12-06] VITALS (13 sets, daily range): BP systolic 118–149; BP diastolic 63–87
[2020-12-06] MEDS: KETOROLAC 30 MG/ML 1ML VIAL IV SCH ×3 (04:00→16:00)
[~2020-12-06 07:03] MED LIST changes: +ERGO500029 PO; -VITA50005 PO
[2020-12-06] MEDS ORDERED: OXYTOCIN DRIP 30 UNITS in IV 1 EA IV PRN (07:35)
[2020-12-06] MEDS ORDERED: LIDOCAINE 1% MDV 20ML VIAL INFIL PRN (07:35)
[2020-12-06] MEDS ORDERED: OXYTOCIN INJ 10 UNITS/ML VIAL (J2590) IM PRN (07:35)
[2020-12-06] MEDS ORDERED: CALCIUM CARBONATE 500 MG CHEW U/D PO PRN (08:40)
[2020-12-06 08:51] LABS: HEMATOCRIT 32.3 % (36.0-47.0); HEMOGLOBIN 10.7 g/dl (12.0-15.5); MEAN CORPUSCULAR HEMOGLOBIN 31.2 pg (27.0-33.0); MEAN CORPUSCULAR HGB CONC 33.1 g/dl (32.0-36.5); MEAN CORPUSCULAR VOLUME 94.2 fl (80.0-96.0); PLATELET COUNT, AUTOMATED 212 10^3/uL (150-450); RED BLOOD COUNT 3.43 10^6/uL (4.00-5.40); WHITE BLOOD COUNT 10.7 10^3/uL (4.0-10.0)
[2020-12-06] MEDS: LABETALOL 200 MG TAB PO SCH ×2 (09:00→23:59)
[2020-12-06 09:22] LABS: ALT/SGPT 17 U/L (12-78); BILIRUBIN,TOTAL 0.1 MG/DL (0.2-1.0); CREATININE FOR GFR 0.38 MG/DL (0.55-1.30); GLOMERULAR FILTRATION RATE > 60.0 (>60); LDH LACTATE DEHYDROGENASE 212 U/L (84-246); URIC ACID 3.3 MG/DL (2.6-6.0)
[2020-12-06] MEDS: miSOPROStol 50MCG 1/2 TABLET PO SCH ×3 (09:52→18:00)
--- NOTE | 2020-12-06 11:07 | HPE ---
HISTORY AND PHYSICAL DATE OF ADMISSION: 12/06/2020 HISTORY OF PRESENT ILLNESS: Amirah is a 30-year-old 1, para 0 at 37 and 1/7 weeks gestation, EDC of 12/26/2020 based on first trimester ultrasound. She presents to labor and delivery today for an induction of labor due to chronic hypertension with an increase in medication and 2 vessel cord per consult with Dr. Noam Harris. She denies headache, visual disturbances, epigastric pain and right upper quadrant discomfort today. She reports some mild tightening of her abdomen. Denies vaginal bleeding and leaked fluid. The fetus has been active. [facility] care was initiated at [facility] in the first trimester. Her course has been complicated by chronic hypertension, labetalol 200 mg by mouth twice a day which was just recently increased, 2 vessel cord where she has undergone reassuring testing, growth is normal, Chiari malformation and she did test positive for COVID at 32 weeks gestation. OBSTETRIC HISTORY: Primigravida. OBSTETRIC LABORATORY DATA: B+. Antibody screen negative. Syphilis negative. Gonorrhea and chlamydia negative. Hepatitis B negative. Hepatitis C. HIV negative. Rubella immune. Gestational diabetic screening normal at 87. Urine culture no growth. GBS negative. On November 30, 2020 she did undergo a spot urine for protein which returned a result of 0.14. On December 06, 2020 she had a repeat preeclamptic profile performed, resulted in AST of 18, ALT 17, LDH 212 and uric acid 3.3. PAST MEDICAL HISTORY: 1. Carpal tunnel. 2. Cubital tunnel. 3. Polycystic ovarian syndrome. 4. Hypertension. PAST SURGICAL HISTORY: 1. Appendectomy. 2. Tonsillectomy. 3. Carpal tunnel. FAMILY HISTORY: Colon cancer, heart disease, hypertension and diabetes. SOCIAL HISTORY: The patient is . Her is at bedside and he is supportive. She is a nonsmoker. She has no history of alcohol use and drug use. Denies history of any sexually transmitted infections and she denies history of abuse physical, sexual and emotional. ALLERGIES: No known drug allergies. CURRENT MEDICATIONS: 1. vitamin. 2. Tums p.r.n. 3. Labetalol 200 mg by mouth twice a day. PHYSICAL EXAMINATION: Temperature 98, pulse 118, BP 118/74. She is alert and oriented times 3. She does appear anxious. heart rate is 125 with moderate variability, positive accelerations, negative decelerations. Contractions are every 4-5 minutes. They do palpate mild. Abdomen: Gravid. Cephalic presentation by Yrn's maneuver and estimated weight is 3200 grams. Sterile vaginal exam: Fingertip, thick, -3, posterior, moderate texture, no show with the exam. ASSESSMENT: 1. Intrauterine at 37 and 1/7 weeks, heart rate is category 1. 2. Essential hypertension. 3. Two vessel cord. PLAN: Admit the patient to labor and delivery. Out of bed ad edelmira. Regular diet at this time. Saline lock for I.V. access. Routine laboratories have been ordered with the addition of a preeclamptic profile. I do plan to start misoprostol 50 mcg by mouth for cervical ripening every 4 hours. We will consider a Cook's catheter as well as I.V. Pitocin. May consider assisted rupture of membranes to augment her labor when she is active. The patient is requesting an epidural when she is uncomfortable for her labor. I did review risks, benefits and alternatives to induction of labor. All of her and her partner's questions have been answered. Consent for induction of labor has been obtained. She has been verbally consented for emergency surgery and blood products if they are necessary. I do anticipate cervical ripening.
[2020-12-06] MEDS ORDERED: SLF 3 ML SYR IV PRN (15:25)
[2020-12-06] MEDS ORDERED: TERBUTALINE SULFATE 1 MG/ML VIAL (J3105) As Ordered ONE (17:25)
[2020-12-06] MEDS ORDERED: BUTORPHANOL 2 MG/ML INJ (J0595) IV ONE (17:25)
[2020-12-06] MEDS ORDERED: PROMETHAZINE INJ 25 MG/ML VIAL (J2550) IV ONE (17:25)
[2020-12-06] MEDS ORDERED: TERBUTALINE SULFATE 1 MG/ML VIAL (J3105) SC ONE (17:25)
[2020-12-06] MEDS ORDERED: LR 1,000 ML IV SCH ×3 (19:20→22:20)
[2020-12-06] MEDS ORDERED: LACTATED RINGER'S 1000 ML IV ONE (19:20)
[2020-12-06] MEDS ORDERED: OXYTOCIN DRIP 30 UNITS in IV 1 EA IV SCH ×2 (20:15→22:00)
[2020-12-06] MEDS ORDERED: BICITRA 30ML SOLN UDC PO ONE (20:35)
[2020-12-06] MEDS ORDERED: AZITHROMYCIN INJ 500 MG, VIAL MATE ADAPTER 1 EACH in NS 250 ML IV ONE (20:35)
[2020-12-06] MEDS ORDERED: LACTATED RINGER'S 1000 ML IV STA (20:35)
[2020-12-06] MEDS ORDERED: ceFAZolin SOD 2 GM in IV 1 EA IV ONE (20:35)
[2020-12-06] MEDS ORDERED: ceFAZolin 2 GM/D5W 50 ML IV BAG (J0690 PER 500MG) As Ordered ONE (20:36)
[2020-12-06] MEDS ORDERED: BICITRA 30ML SOLN UDC As Ordered ONE (20:36)
[2020-12-06] MEDS ORDERED: AZITHROMYCIN INJ 500MG VIAL (J0456 PER 500MG) As Ordered ONE (20:37)
[2020-12-06] MEDS ORDERED: KETOROLAC 60MG 2ML VIAL As Ordered ONE (20:40)
[2020-12-06] MEDS ORDERED: ONDANSETRON 4MG/2ML VIAL As Ordered ONE (20:40)
[2020-12-06] MEDS ORDERED: OXYTOCIN INJ 10 UNITS/ML VIAL (J2590) As Ordered ONE ×2 (20:40→21:25)
[2020-12-06] MEDS ORDERED: dexameTHASONE 4 MG/ML 1ML VIAL (J1100 PER 1MG) As Ordered ONE (20:40)
[2020-12-06] MEDS ORDERED: MORPHINE PRES-FREE INJ 10 MG/10 ML VIAL (J2274) As Ordered ONE (20:42)
[2020-12-06] MEDS ORDERED: fentaNYL 100 MCG/2 ML INJECTION (J3010) As Ordered ONE (20:42)
[2020-12-06] MEDS ORDERED: METOCLOPRAMIDE INJ 10MG/2ML VIAL (J2765 PER 1) IV PRN ×2 (20:58→22:20)
[2020-12-06] MEDS ORDERED: NALOXONE INJ 0.4MG/1ML VIAL (J2310 PER 1MG) IV PRN ×2 (20:58)
[2020-12-06] MEDS ORDERED: ONDANSETRON 4MG/2ML VIAL IV PRN ×3 (20:58→22:20)
[2020-12-06] MEDS ORDERED: diphenhydrAMINE 50MG/ML VIAL (J1200) IV PRN (20:58)
[2020-12-06] MEDS ORDERED: NALBUPHINE HCL 10 MG/ML AMP (J2300) IV PRN (20:58)
[2020-12-06 21:22] LABS: CORD GAS ABE A -5.5; CORD GAS HCO3 A 24.1 MEQ/L; CORD GAS PCO2 A 64.3 mmHg; CORD GAS PH A 7.192 UNITS; CORD GAS TCO2 A 26.1 MEQ/L
[2020-12-06 21:23] LABS: CORD GAS HCO3 V 26.3 MEQ/L; CORD GAS O2 SAT V 27.2 %; CORD GAS PCO2 V 70.7 mmHg; CORD GAS PH V 7.188 UNITS; CORD GAS PO2 V 16.2 mmHg; CORD GAS SBC V 19.4 MEQ/L; CORD GAS TCO2 V 28.4 MEQ/L
[2020-12-06 21:25] LABS: CORD GAS O2 SAT A < 15.0 %
[2020-12-06 21:26] LABS: CORD GAS PO2 A < 10.0 mmHg
--- NOTE | 2020-12-06 21:59 | ROOPDOC ---
[facility] Report Of Operation Report of Operation DATE OF PROCEDURE: 12/06/2020 PREPROCEDURE DIAGNOSES: 37+ weeks gestation, chronic hypertension, nonreassuring heart rate tracing POSTPROCEDURE DIAGNOSES: Same PROCEDURE:. Primary low transverse section SURGEON: Noam Harris DO FACOG NET LEAD ARCHITECT: Jes Funez CNM (Essential role in retraction, extraction, and closure of all tissue layers) ANESTHESIA: Spinal ESTIMATED BLOOD LOSS: 600 mL. IV FLUIDS: 1700mL LR URINE OUTPUT: 300 mL COMPLICATIONS: None. PREOPERATIVE ANTIBIOTICS: Ancef 2g IV x 1, Azithromycin 500mg IV. COMPLICATIONS: none DATA: Apgars 5 and 8. Birthweight 3380 g, 7 lbs 7 oz. Cord gases: arterial pH 7.192/-5.5 , venous pH 7.188/-4.0 SPECIMENS: none PRIMARY INDICATION FOR : Nonreassuring heart rate tracing DESCRIPTION OF PROCEDURE: The patient was counseled on the risks, benefits, indications and alternatives of the procedure. Informed consent was obtained. She was taken to the operating room with IV running and placed on the operating table in the dorsal supine position with a leftward tilt. Regional anesthesia was found to be adequate. Sequential compression devices were placed on the lower extremities. A Evangelista catheter was placed under sterile conditions. She was prepared and draped in normal sterile fashion. A time out was performed per protocol. Regional anesthesia was again found to be adequate. A Pfannenstiel skin incision was made with the 10 blade. The 10 blade was used to dissect down to the level of the rectus sheath fascia. The rectus sheath pressure was incised midline and this was extended bilaterally with Patterson scissors , and manual stretch. The rectus muscle bellies were dissected off the rectus sheath fascia superiorly and inferiorly using both sharp and blunt dissection. The midline was identified. The peritoneum was identified and entered digitally. The peritoneal opening was extended with manual stretch. The Mobius retractor was placed. The vesicouterine peritoneum was dissected with Metzenbaum scissors to create the bladder flap. A low transverse uterine incision was made with the 10 blade. This was extended with manual stretch. The amniotic sac was punctured, and clear fluid was noted. The baby delivered through the hysterotomy without difficulty. The cord was doubly clamped and cut, and the baby was handed off to awaiting care. data shown above. Cord gases were obtained. The placenta was removed manually. The intrauterine cavity was cleared of all clot and debris. The hysterotomy was closed with 0 Vicryl in running locked fashion. This was reinforced with a second imbricating layer using 0 Vicryl in running fashion. Excellent hemostasis of the hysterotomy was noted. The pelvis was irrigated and the fluid suctioned. The Mobius retractor was removed. The peritoneum was closed with 3-0 Vicryl running fashion. The rectus muscle bellies were reapproximated with interrupted stitches using 3-0 Vicryl. The rectus muscles bellies were hemostatic. The rectus sheath fascia was closed with 0 Vicryl running fashion. The subcutaneous layer was irrigated and the fluid suctioned. Small bleeding vessels were cauterized with Bovie. Excellent hemostasis was noted. The subcutaneous layer was reapproximated with 3-0 Vicryl running fashion. Skin was closed with 3-0 Monocryl in subcuticular fashion. An Optifoam bandage was placed over the closed incision. Sponge, needle and instrument counts were correct per protocol throughout the procedure. The patient tolerated the entire procedure very well. She was transferred to the PACU in stable condition. DO URIEL Hassan JONATHAN R. DO Dec 06, 2020 21:59
[2020-12-06] MEDS ORDERED: SIMETHICONE 80MG CHEW TAB PO PRN (22:00)
[2020-12-06] MEDS ORDERED: MEASLES,MUMPS,RUBELLA VACCINE INJ (MMR-II) (90707) SC SCH (22:00)
[2020-12-06] MEDS ORDERED: SLF 3 ML SYR IV SCH (22:00)
[2020-12-06] MEDS ORDERED: ACETAMINOPHEN 500 MG TAB PO PRN (22:00)
[2020-12-06] MEDS ORDERED: RHOGAM 300 MCG (1500 IU) INJ (J2790) IM SCH (22:00)
[2020-12-06] MEDS ORDERED: PERCOCET 5MG/325MG TAB PO PRN ×2 (22:00→22:20)
[2020-12-06] MEDS ORDERED: PERCOCET PO (22:05)
[2020-12-06] MEDS ORDERED: IBUP80TA PO (22:07)
[2020-12-06] MEDS ORDERED: DOK1CAP7 PO (22:07)
[2020-12-06] MEDS ORDERED: KETOROLAC 30 MG/ML 1ML VIAL IV PRN (22:20)
[2020-12-06] MEDS ORDERED: fentaNYL 100 MCG/2 ML INJECTION (J3010) IV PRN (22:20)
[2020-12-06] MEDS ORDERED: OXYTOCIN 30 UNITS IN 0.9% NaCl 500ML IV BAG (J2590) As Ordered ONE (22:28)
[2020-12-06] MEDS: DOCUSATE SODIUM 100MG CAPSULE PO SCH (23:58)
[2020-12-07] VITALS (9 sets, daily range): BP systolic 111–137; BP diastolic 59–83
[2020-12-07] MEDS: LR 1,000 ML IV SCH ×2 (03:18→09:15)
[2020-12-07] MEDS: KETOROLAC 30 MG/ML 1ML VIAL IV SCH ×3 (03:18→15:50)
--- NOTE | 2020-12-07 07:43 | NBADM ---
[place] Admission Note Date of Admission Dec 06, 2020 at 07:03 History This is a baby boy born at 37.1 weeks of gestational age via to a -year-old (G)1 para (P)1mother who is blood type B positive, hepatitis B negative, rapid plasma reagin (RPR) nonreactive, HIV negative, group B Streptococcus negative. indications: nonreassuring status. Maternal and risk indicators and complications: chronic hypertension. Baby cried at . Baby was born at 2107 on December 06, 2021, 0 hours and 0 minutes after AROM. scores were at one minute and at five minutes. Baby was admitted to the Mother-Baby unit. Physical Examination Physical Measurements On admission, the baby's weight is grams, length is cm, and head circumference is cm. Vital Signs Vital Signs Date Time Temp Pulse Resp B/P (MAP) Pulse Ox O2 Delivery O2 Flow Rate FiO2 12/06/20 07:33 98.0 12/06/20 07:41 118 18 130/77 (94) 98 12/06/20 18:04 Room Air Plan 1. Admit to mother-baby unit. 2. Routine care. 3. updated on condition and plan for the baby. MIGUEL JOHN DO Dec 07, 2020 07:43
[2020-12-07 07:49] LABS: HEMATOCRIT 28.6 % (36.0-47.0); HEMOGLOBIN 9.8 g/dl (12.0-15.5); MEAN CORPUSCULAR HEMOGLOBIN 32.5 pg (27.0-33.0); MEAN CORPUSCULAR HGB CONC 34.3 g/dl (32.0-36.5); MEAN CORPUSCULAR VOLUME 94.7 fl (80.0-96.0); PLATELET COUNT, AUTOMATED 214 10^3/uL (150-450); RED BLOOD COUNT 3.02 10^6/uL (4.00-5.40); WHITE BLOOD COUNT 19.1 10^3/uL (4.0-10.0)
[2020-12-07] MEDS: DOCUSATE SODIUM 100MG CAPSULE PO SCH ×2 (09:13→20:59)
[2020-12-07] MEDS: PRENATAL VITAMINS CHEWABLE TABLET PO SCH (09:13)
[2020-12-07] MEDS: LABETALOL 200 MG TAB PO SCH ×2 (09:13→20:59)
[2020-12-07] MEDS: PERCOCET 5MG/325MG TAB PO PRN (18:50)
[2020-12-07] MEDS: IBUPROFEN 800 MG TAB PO SCH (23:21)
[2020-12-08] MEDS: PERCOCET 5MG/325MG TAB PO PRN (02:29)
[2020-12-08 06:09] VITALS: BP 117/63
[2020-12-08] MEDS: IBUPROFEN 800 MG TAB PO SCH (07:37)
[2020-12-08 08:39] VITALS: BP 124/86
[2020-12-08] MEDS: LABETALOL 200 MG TAB PO SCH (08:39)
[2020-12-08] MEDS: PRENATAL VITAMINS CHEWABLE TABLET PO SCH (08:39)
[2020-12-08] MEDS: DOCUSATE SODIUM 100MG CAPSULE PO SCH (08:39)
--- NOTE | 2020-12-08 09:15 | DS.PDOC ---
Discharge Summary General Date of Admission Dec 06, 2020 at 07:03 Date of Discharge 12/08/2020 Discharge Summary PROCEDURES PERFORMED DURING STAY: Primary section ADMITTING DIAGNOSES: 1. Chronic hypertension 2. IUP at 37+ gestation DISCHARGE DIAGNOSES: 1. Primary section 2. Chronic hypertension COMPLICATIONS/CHIEF COMPLAINT: Induction. HISTORY OF PRESENT ILLNESS: Amirah was admitted for induction of labor on 12/06/2020 due to chronic hypertension requiring increased medication. Primary section performed by Dr Harris for indications. HOSPITAL COURSE: Afebrile, normotensive. Adequate pain management on oral medications. OOB independently. Tolerating diet. Voiding and passing flatus. DISCHARGE MEDICATIONS: Please see below. ALLERGIES: Please see below. PHYSICAL EXAMINATION ON DISCHARGE: VITAL SIGNS: Please see below. GENERAL: Alert, no distress HEENT: WNL NECK: Supple CARDIOVASCULAR EXAMINATION: HRR, normotensive on medications. RESPIRATORY EXAMINATION: Clear and unlabored ABDOMINAL EXAMINATION: Fundus firm. Dressing intact EXTREMITIES: Equal strength and motion SKIN: Intact NEUROLOGICAL EXAMINATION: Grossly intact PSYCHIATRIC EXAMINATION: Appropriate LABORATORY DATA: Please see below. PROGNOSIS: Good ACTIVITY: As tolerated. Pelvic rest DIET: As tolerated DISCHARGE PLAN: Home today with family DISPOSITION: Home . DISCHARGE INSTRUCTIONS: 1. Continue oral medications as directed. Remove dressing day 5. Pelvic rest x 6 weeks. Call with fever, nausea, vomiting, chills, foul lochia, wound exudate or blood pressure concerns. RTO 2wks and 6wks DISCHARGE CONDITION: Stable. TIME SPENT ON DISCHARGE: Greater than 10 minutes. Vital Signs/I&Os Vital Signs Date Time Temp Pulse Resp B/P (MAP) Pulse Ox O2 Delivery O2 Flow Rate FiO2 12/08/20 08:39 98 124/86 12/08/20 06:09 97.9 18 12/07/20 22:00 98 12/07/20 18:12 Room Air I&O- Last 24 Hours up to 6 AM 12/08/20 06:00 Intake Total 750 ml Output Total 400 ml Balance 350 ml Discharge Medications Scheduled Atenolol (Atenolol) 25 Mg Tablet, 1 TAB PO DAILY, (Reported) Docusate Sodium (Dok) 100 Mg Capsule, 100 MG PO BID Ergocalciferol (Vitamin D2) (Vitamin D2) 50,000 Units Cap, 1 CAP PO QWEEK, (Reported) friday Famotidine (Famotidine) 20 Mg Tablet, 20 MG PO QHS, (Reported) Fluoxetine Hcl (Fluoxetine HCl) 40 Mg Capsule, 1 CAP PO DAILY, (Reported) Gabapentin (Gabapentin) 300 Mg Capsule, 1 CAP PO TID, (Reported) Hydroxyzine HCl (Hydroxyzine HCl) 10 Mg Tablet, 1 TAB PO Q8H, (Reported) Ibuprofen (Ibuprofen) 800 Mg Tablet, 800 MG PO Q8H Losartan Potassium (Losartan Potassium) 25 Mg Tablet, 1 TAB PO DAILY, (Reported) Quetiapine Fumarate (Quetiapine Fumarate) 25 Mg Tablet, 1 TAB PO DAILY, (Reported) Scheduled PRN Dicyclomine HCl (Dicyclomine HCl) 10 Mg Capsule, 1 CAP PO Q6HP PRN for irritable bowel symptoms Oxycodone/Acetaminophen (Oxycodone-Acetaminophen 5-325) 1 Each Tablet, 1 TAB PO Q4H PRN for MILD/MODERATE PAIN (PS 1-7) Miscellaneous Medications Naltrexone HCl (Naltrexone HCl) 50 Mg Tablet, (Reported) Allergies Coded Allergies: No Known Allergies (Verified , 11/01/19) Shannon Agudelo Dec 08, 2020 09:13
== END 2020-12-08 10:55 | disposition home or self-care (01) | DRG 540 ==
LOC: M LDI 07:03 → M OBS 23:36
PROVIDERS: ADMIT Advanced Practice Midwife; ATTEND Obstetrics & Gynecology
PROC: 3E0P7GC Introduction of Other Therapeutic Substance into Female Reproductive, Via Natural or Artificial Opening (ICD-10-PCS; 2020-12-06)
PROC: 10D00Z1 Extraction of Products of Conception, Low, Open Approach (ICD-10-PCS; principal; 2020-12-06 20:42)
DX: O10.02 Pre-existing essential hypertension complicating childbirth (principal); Z3A.37 37 weeks gestation of pregnancy; Z86.16 Personal history of COVID-19; O76 Abnormality in fetal heart rate and rhythm complicating labor and delivery; Z37.0 Single live birth

== ENCOUNTER 2022-04-05 12:32 | Emergency (ER) | payer OTHER, BC ==
[~2022-04-05] VITALS: Ht 157.5 cm; Wt 90.9 kg
[~2022-04-05 12:32] MED LIST changes: +DOK1CAP4 PO; +IBUP80TA PO; +LOSA25TA13 PO; -LOSA25TA14 PO; +PERCOCET PO; +QUET1TAB17 PO; -QUET25TA3 PO
[2022-04-05] MEDS ORDERED: KETOROLAC 30 MG/ML 1ML VIAL IM ONE (14:55)
[2022-04-05 15:47] VITALS: BP 143/86
== END 2022-04-05 16:00 | disposition home or self-care (01) ==
LOC: M ED 12:32
DX: S00.83XA Contusion of other part of head, initial encounter (principal); W50.0XXA Accidental hit or strike by another person, initial encounter; Y92.9 Unspecified place or not applicable; Y93.9 Activity, unspecified; Y99.0 Civilian activity done for income or pay; Z79.899 Other long term (current) drug therapy
CPT/HCPCS: 70150; 96372; 99283; J1885

== ENCOUNTER → 2023-11-18 | Outpatient (CLI) | payer BC ==
[~2023-11-18] MED LIST changes: +DICY-61 PO; -DICY10CA13 PO
[2023-11-18 18:07] LABS: URIC ACID 3.6 MG/DL (3.1-7.8)
[2023-11-18 18:08] LABS: HEMATOCRIT 38.8 % (36.0-47.0); HEMOGLOBIN 13.4 g/dl (12.0-15.5); MEAN CORPUSCULAR HEMOGLOBIN 31.9 pg (27.0-33.0); MEAN CORPUSCULAR HGB CONC 34.5 g/dl (32.0-36.5); MEAN CORPUSCULAR VOLUME 92.4 fl (80.0-96.0); PLATELET COUNT, AUTOMATED 238 10^3/uL (150-450); WHITE BLOOD COUNT 9.4 10^3/uL (4.0-10.0)
[2023-11-18 18:09] LABS: LDH LACTATE DEHYDROGENASE 161 U/L (120-246)
[2023-11-18 18:10] LABS: ALT/SGPT 19 U/L (7.0-40); AST/SGOT 13 U/L (<34); BILIRUBIN,TOTAL 0.3 MG/DL (0.3-1.2); CREATININE FOR GFR 0.59 MG/DL (0.55-1.30); GLOMERULAR FILTRATION RATE > 60.0 (>60)
[2023-11-18 18:27] LABS: CREATININE,RANDOM URINE 192.1 MG/DL
[2023-11-18 18:31] LABS: TOTAL PROTEIN,RANDOM URINE < 6.0 MG/DL (0.0-14.0)
[2023-11-18 18:42] LABS: HIV 1&2 SCREEN NEGATIVE (NEGATIVE)
[2023-11-18 18:49] LABS: HEPATITIS C VIRUS ABY INDEX < 0.02 INDEX (<0.8)
[2023-11-18 19:58] LABS: GC DNA AMPLIFICATION NEGATIVE (NEGATIVE)
== END ==
LOC: M PLALAB 14:41
PROVIDERS: ATTEND Advanced Practice Midwife
DX: Z34.91 Encounter for supervision of normal pregnancy, unspecified, first trimester (principal)

== ENCOUNTER → 2024-01-05 | Outpatient (CLI) | payer BC | LOC: M WHC 07:00 | PROVIDERS: ATTEND Advanced Practice Midwife | DX: Z34.92 Encounter for supervision of normal pregnancy, unspecified, second trimester (principal) ==

== ENCOUNTER → 2024-01-30 | Outpatient (CLI) | payer BC | LOC: M RAD 07:14 | PROVIDERS: ATTEND Advanced Practice Midwife | DX: Z34.92 Encounter for supervision of normal pregnancy, unspecified, second trimester (principal) ==

== ENCOUNTER 2024-02-16 08:11 | Outpatient (CLI) | payer BC ==
[2024-02-16 13:43] LABS: HEMATOCRIT 35.9 % (36.0-47.0); HEMOGLOBIN 12.2 g/dl (12.0-15.5); MEAN CORPUSCULAR HEMOGLOBIN 33.1 pg (27.0-33.0); MEAN CORPUSCULAR VOLUME 97.3 fl (80.0-96.0); PLATELET COUNT, AUTOMATED 207 10^3/uL (150-450); RED BLOOD COUNT 3.69 10^6/uL (4.00-5.40)
== END 2024-03-04 13:40 | disposition home or self-care (01) ==
LOC: M PLALAB 08:11
PROVIDERS: ATTEND Nurse Practitioner Women's Health
DX: Z34.80 Encounter for supervision of other normal pregnancy, unspecified trimester (principal)

== ENCOUNTER 2024-03-04 03:20 | Outpatient (CLI) | payer BC ==
[~2024-03-04] VITALS: Ht 157.5 cm; Wt 98.1 kg
[2024-03-04 03:36] VITALS: BP 148/89
[2024-03-04] MEDS ORDERED: ONDANSETRON 4MG 2ML VIAL IV PRN (03:55)
[2024-03-04] MEDS: PROMETHAZINE 25MG/ML 1ML VIAL IV ONE (04:18)
[2024-03-04] MEDS: MORPHINE 10 MG/ML 1ML VIAL IV PRN (04:18)
[2024-03-04] MEDS: LACTATED RINGER'S 1000 ML IV ONE (04:21)
[2024-03-04 04:30] LABS: HEMATOCRIT 33.3 % (36.0-47.0); MEAN CORPUSCULAR HEMOGLOBIN 33.7 pg (27.0-33.0); MEAN CORPUSCULAR VOLUME 93.5 fl (80.0-96.0); PLATELET COUNT, AUTOMATED 188 10^3/uL (150-450); RED BLOOD COUNT 3.56 10^6/uL (4.00-5.40); WHITE BLOOD COUNT 15.2 10^3/uL (4.0-10.0)
[2024-03-04 04:49] LABS: AMORPHOUS SEDIMENT SMALL (NEGATIVE); APPEARANCE, URINE CLOUDY (CLEAR); BACTERIA, URINE AUTO 1+ (NEGATIVE); BILIRUBIN, URINE AUTO NEGATIVE (NEGATIVE); BLOOD, URINE BLOOD NEGATIVE (NEGATIVE); CALCIUM OXALATE CRYSTALS SMALL; COLOR, URINE YELLOW (YELLOW); GLUCOSE, URINE (UA) AUTO NEGATIVE (NEGATIVE); KETONE, URINE AUTO TRACE mg/dL (NEGATIVE); LEUKOCYTE ESTERASE, URINE AUTO NEGATIVE (NEGATIVE); MUCUS, URINE SMALL (NEGATIVE); NITRITE, URINE AUTO NEGATIVE (NEGATIVE); PROTEIN, URINE AUTO 2+ mg/dL (NEGATIVE); RBC, URINE AUTO 3 /HPF (0-3); SPECIFIC GRAVITY URINE AUTO 1.024 (1.002-1.035); SQUAMOUS EPITHELIAL CELL UR AU 12 /HPF (0-6); UROBILINOGEN, URINE AUTO 0.2 mg/dL (0.0-2.0); WBC, URINE AUTO 3 /HPF (0-3)
[2024-03-04 04:53] VITALS: BP 127/72
[2024-03-04 05:04] LABS: ALBUMIN 3.1 G/DL (3.2-5.2); BLOOD UREA NITROGEN 13 MG/DL (9-23); CALCIUM LEVEL 8.8 MG/DL (8.5-10.1); CARBON DIOXIDE LEVEL 21 MMOL/L (20-31); CHLORIDE LEVEL 106 MMOL/L (98-107); CREATININE FOR GFR 0.66 MG/DL (0.55-1.30); GLOMERULAR FILTRATION RATE > 60.0 (>60); GLUCOSE, FASTING 91 MG/DL (60-100); PHOSPHORUS LEVEL 3.8 MG/DL (2.5-4.9); POTASSIUM SERUM 3.8 MMOL/L (3.5-5.1); SODIUM LEVEL 135 MMOL/L (136-145)
[2024-03-04 05:26] LABS: URIC ACID 3.8 MG/DL (3.1-7.8)
[2024-03-04 05:28] LABS: LDH LACTATE DEHYDROGENASE 193 U/L (120-246)
[2024-03-04 05:29] LABS: ALT/SGPT 16 U/L (7.0-40); AST/SGOT 15 U/L (<34); BILIRUBIN,TOTAL 0.4 MG/DL (0.3-1.2)
[2024-03-04 05:46] LABS: TOTAL PROTEIN,RANDOM URINE 38.4 MG/DL (0.0-14.0)
[2024-03-04 05:51] LABS: CREATININE,RANDOM URINE 208.1 MG/DL
[2024-03-04] MEDS: LR 1,000 ML IV SCH (06:19)
[2024-03-04] MEDS: TAMSULOSIN 0.4 MG CAP PO SCH (08:25)
[2024-03-04 08:34] VITALS: BP 132/68
[2024-03-04] MEDS ORDERED: HOME MED LIST COMPLETE! XX SCH (08:45)
[2024-03-04] MEDS: CYCLOBENZAPRINE 10MG TABLET PO ONE (09:43)
[2024-03-04 12:10] VITALS: BP 115/64
== END 2024-03-04 13:49 ==
LOC: M LDO 03:20
PROVIDERS: ATTEND Advanced Practice Midwife
DX: O26.892 Other specified pregnancy related conditions, second trimester (principal); O09.522 Supervision of elderly multigravida, second trimester; O34.211 Maternal care for low transverse scar from previous cesarean delivery; O99.282 Endocrine, nutritional and metabolic diseases complicating pregnancy, second trimester; R25.2 Cramp and spasm; M54.9 Dorsalgia, unspecified; E28.2 Polycystic ovarian syndrome; Z3A.27 27 weeks gestation of pregnancy
CPT/HCPCS: 59025; 76775; 80069; 81001; 82247; 82570; 83615; 84156; 84450; 84460; 84550; 85027; G0463; J2550

== ENCOUNTER → 2024-04-08 | Outpatient (CLI) | payer OTHER ==
[~2024-04-08] MED LIST changes: +GABA-1172 PO; -GABA-282 PO
== END ==
LOC: M RAD 16:34
PROVIDERS: ATTEND Obstetrics & Gynecology
DX: O10.913 Unspecified pre-existing hypertension complicating pregnancy, third trimester (principal); Z3A.32 32 weeks gestation of pregnancy

== ENCOUNTER 2024-04-26 16:39 | Outpatient (CLI) | payer OTHER ==
[~2024-04-26] VITALS: Ht 157.5 cm; Wt 99.6 kg
[2024-04-26 17:06] VITALS: BP 123/92
[2024-04-26] MEDS ORDERED: PRENTAB9 PO (17:14)
[2024-04-26] MEDS ORDERED: LABE100T40 PO (17:14)
[2024-04-26] MEDS ORDERED: ASPI81CH33 PO (17:14)
[2024-04-26] MEDS ORDERED: DICY20TA20 PO (17:14)
[2024-04-26] MEDS ORDERED: ACET500P3 PO (17:14)
[2024-04-26 17:17] VITALS: BP 130/83
[2024-04-26 17:27] VITALS: BP 124/78
[2024-04-26 17:49] LABS: HEMATOCRIT 31.7 % (36.0-47.0); HEMOGLOBIN 11.3 g/dl (12.0-15.5); MEAN CORPUSCULAR HGB CONC 35.6 g/dl (32.0-36.5); MEAN CORPUSCULAR VOLUME 95.5 fl (80.0-96.0); PLATELET COUNT, AUTOMATED 195 10^3/uL (150-450); RED BLOOD COUNT 3.32 10^6/uL (4.00-5.40); WHITE BLOOD COUNT 12.5 10^3/uL (4.0-10.0)
[2024-04-26 17:52] LABS: TOTAL PROTEIN,RANDOM URINE 18.8 MG/DL (0.0-14.0)
[2024-04-26 17:57] LABS: CREATININE,RANDOM URINE 127.7 MG/DL
[2024-04-26 18:07] LABS: URIC ACID 3.5 MG/DL (3.1-7.8)
[2024-04-26 18:09] LABS: LDH LACTATE DEHYDROGENASE 173 U/L (120-246)
[2024-04-26 18:10] LABS: ALT/SGPT 15 U/L (7.0-40); AST/SGOT 13 U/L (<34); BILIRUBIN,TOTAL 0.4 MG/DL (0.3-1.2); CREATININE FOR GFR 0.44 MG/DL (0.55-1.30); GLOMERULAR FILTRATION RATE > 60.0 (>60)
== END 2024-04-26 19:55 | disposition home or self-care (01) ==
LOC: M LDO 16:39
PROVIDERS: ATTEND Advanced Practice Midwife
DX: O10.013 Pre-existing essential hypertension complicating pregnancy, third trimester (principal); O09.523 Supervision of elderly multigravida, third trimester; O34.211 Maternal care for low transverse scar from previous cesarean delivery; O99.283 Endocrine, nutritional and metabolic diseases complicating pregnancy, third trimester; E28.2 Polycystic ovarian syndrome; Z3A.34 34 weeks gestation of pregnancy
CPT/HCPCS: 36415; 59025; 82247; 82570; 83615; 84156; 84450; 84460; 84550; 85027; G0463

== ENCOUNTER → 2024-05-03 | Outpatient (CLI) | payer OTHER ==
[~2024-05-03] MED LIST changes: +ACET500P3 PO; +ASPI81CH33 PO; +DICY20TA20 PO; +LABE100T40 PO; +PRENTAB9 PO
== END ==
LOC: M RAD 16:06
PROVIDERS: ATTEND Obstetrics & Gynecology
DX: O10.019 Pre-existing essential hypertension complicating pregnancy, unspecified trimester (principal)

== ENCOUNTER → 2024-05-03 | Outpatient (REF) | payer OTHER ==
[~2024-05-03] MED LIST changes: +AMOX500C PO; +BENZ-18 PO; +BUDE2SUS3; +COLA100C5 PO; +VENTAER INH
== END ==
LOC: M LAB REF 20:16
PROVIDERS: ATTEND Physician Assistant
DX: B34.9 Viral infection, unspecified (principal)

== ENCOUNTER 2024-05-05 08:33 | Outpatient (CLI) | payer OTHER ==
[~2024-05-05] VITALS: Ht 157.5 cm; Wt 99.2 kg
[~2024-05-05 08:33] MED LIST changes: -AMOX500C PO; -BENZ-18 PO; -BUDE2SUS3; -COLA100C5 PO; -VENTAER INH
[2024-05-05 08:46] VITALS: BP 146/89
[2024-05-05] MEDS ORDERED: HOME MED LIST COMPLETE! XX SCH (09:20)
[2024-05-05 09:31] VITALS: BP 133/84
[2024-05-05] MEDS: BETAMETHASONE SOLUSPAN 6MG/ML 5ML VIAL IM SCH (09:35)
[2024-05-05] MEDS ORDERED: AMOX500C PO (10:26)
[2024-05-05 10:34] VITALS: BP 138/93
[2024-05-05 10:36] VITALS: BP 139/91
[2024-05-05] MEDS ORDERED: VENTAER INH (13:51)
[2024-05-05] MEDS ORDERED: BUDE2SUS3 (13:51)
[2024-05-06] MEDS ORDERED: BENZ-18 PO (12:24)
== END 2024-05-05 12:30 | disposition home or self-care (01) ==
LOC: M LDO 08:33
PROVIDERS: ATTEND Advanced Practice Midwife
DX: O36.8330 Maternal care for abnormalities of the fetal heart rate or rhythm, third trimester, not applicable or unspecified (principal); O10.013 Pre-existing essential hypertension complicating pregnancy, third trimester; O34.219 Maternal care for unspecified type scar from previous cesarean delivery; O09.523 Supervision of elderly multigravida, third trimester; O99.283 Endocrine, nutritional and metabolic diseases complicating pregnancy, third trimester; E28.2 Polycystic ovarian syndrome; Z3A.36 36 weeks gestation of pregnancy
CPT/HCPCS: 59025; 76815; 76819; 76820; 87081; 96372; G0463; J0702

== ENCOUNTER 2024-05-06 09:09 | Outpatient (CLI) | payer OTHER ==
[~2024-05-06] VITALS: Ht 157.5 cm; Wt 98.0 kg
[~2024-05-06 09:09] MED LIST changes: +AMOX500C PO; +BUDE2SUS3; +VENTAER INH
[2024-05-06 09:26] VITALS: BP 113/73; O2SAT 98
[2024-05-06 10:31] VITALS: BP 117/56; O2SAT 96
[2024-05-06] MEDS: BETAMETHASONE SOLUSPAN 6MG/ML 5ML VIAL IM ONE (10:36)
[2024-05-06] MEDS: BENZONATATE 100MG CAPSULE PO SCH (10:42)
[2024-05-06] MEDS ORDERED: HOME MED LIST COMPLETE! XX SCH (10:45)
[2024-05-06 11:38] VITALS: BP 132/77
[2024-05-06] MEDS ORDERED: BENZ-18 PO (12:24)
== END 2024-05-06 11:47 | disposition home or self-care (01) ==
LOC: M LDO 09:09
PROVIDERS: ATTEND Obstetrics & Gynecology
DX: O10.013 Pre-existing essential hypertension complicating pregnancy, third trimester (principal); O99.343 Other mental disorders complicating pregnancy, third trimester; O34.219 Maternal care for unspecified type scar from previous cesarean delivery; O26.893 Other specified pregnancy related conditions, third trimester; F41.9 Anxiety disorder, unspecified; R05.9 Cough, unspecified; Z3A.36 36 weeks gestation of pregnancy
CPT/HCPCS: 59025; 71046; 96372; G0463; J0702

== ENCOUNTER 2024-05-13 05:47 | Inpatient (IN) | payer OTHER ==
[2024-05-13] VITALS (9 sets, daily range): BP systolic 111–129; BP diastolic 61–90; TEMP 97.2; O2SAT 97–99
[~2024-05-13] VITALS: Ht 157.5 cm; Wt 97.4 kg
[~2024-05-13 05:47] MED LIST changes: +BENZ-18 PO
[2024-05-13] MEDS ORDERED: HOME MED LIST COMPLETE! XX SCH (05:55)
[2024-05-13 06:38] LABS: HEMATOCRIT 33.8 % (36.0-47.0); HEMOGLOBIN 11.7 g/dl (12.0-15.5); MEAN CORPUSCULAR HEMOGLOBIN 33.3 pg (27.0-33.0); MEAN CORPUSCULAR HGB CONC 34.6 g/dl (32.0-36.5); MEAN CORPUSCULAR VOLUME 96.3 fl (80.0-96.0); PLATELET COUNT, AUTOMATED 257 10^3/uL (150-450); RED BLOOD COUNT 3.51 10^6/uL (4.00-5.40); WHITE BLOOD COUNT 12.6 10^3/uL (4.0-10.0)
[2024-05-13] MEDS: LACTATED RINGER'S 1000 ML IV STA (06:46)
[2024-05-13] MEDS: BICITRA 30ML SOLN UDC PO ONE (07:16)
[2024-05-13] MEDS: ceFAZolin SOD 2 GM in IV 1 EA IV ONE (07:16)
[2024-05-13] MEDS: LR 1,000 ML IV SCH (07:17)
[2024-05-13] MEDS ORDERED: OXYTOCIN INJ 10UNITS/ML 1ML VIAL As Ordered ONE (07:25)
[2024-05-13] MEDS ORDERED: MORPHINE PRES-FREE INJ 10 MG/10 ML VIAL As Ordered ONE (07:26)
[2024-05-13] MEDS ORDERED: PHENYLephrine 500MCG 5ML (100MCG/ML) SYRINGE As Ordered ONE (07:26)
[2024-05-13] MEDS ORDERED: KETOROLAC 60MG 2ML VIAL As Ordered ONE (07:26)
[2024-05-13] MEDS ORDERED: ONDANSETRON 4MG 2ML VIAL As Ordered ONE (07:27)
[2024-05-13] MEDS ORDERED: ANUSOL HC CREAM 30GM TOP PRN (07:35)
[2024-05-13] MEDS ORDERED: RHOGAM 300MCG (1500IU) INJ IM SCH (07:35)
[2024-05-13] MEDS ORDERED: SIMETHICONE 80MG CHEW TAB PO PRN (07:35)
[2024-05-13] MEDS ORDERED: ACETAMINOPHEN 500 MG TAB PO PRN (07:35)
[2024-05-13] MEDS ORDERED: CALCIUM CARBONATE 500 MG CHEW U/D PO PRN (07:35)
[2024-05-13] MEDS ORDERED: MORPHINE 4 MG/ML 1ML VIAL IV PRN (07:35)
[2024-05-13 07:55] LABS: HEPATITIS C VIRUS ABY INDEX 0.02 INDEX (<0.8)
[2024-05-13] MEDS ORDERED: COLA100C5 PO (08:49)
[2024-05-13] MEDS ORDERED: NALOXONE INJ 0.4MG/1ML VIAL IV PRN ×2 (08:50)
[2024-05-13] MEDS ORDERED: **NOTE PATIENT COMMENT** MISC XX SCH (08:50)
[2024-05-13] MEDS ORDERED: METOCLOPRAMIDE INJ 10MG/2ML VIAL IV PRN (08:50)
[2024-05-13] MEDS: SLF 3 ML SYR IV SCH (08:50)
[2024-05-13] MEDS ORDERED: oxyCODONE 5MG TAB PO PRN (08:50)
[2024-05-13] MEDS ORDERED: OXYTOCIN 30UNITS IN 0.9% NaCl 500ML IV BAG As Ordered ONE (08:55)
[2024-05-13] MEDS: DOCUSATE SODIUM 100MG CAPSULE PO SCH (09:00)
[2024-05-13] MEDS: OXYTOCIN DRIP 30 UNITS in IV 1 EA IV SCH (09:04)
[2024-05-13] MEDS: ONDANSETRON 4MG 2ML VIAL IV PRN (09:36)
[2024-05-13] MEDS ORDERED: diphenhydrAMINE 50MG/ML VIAL As Ordered ONE (09:39)
[2024-05-13] MEDS: diphenhydrAMINE 50MG/ML VIAL IV PRN (09:41)
[2024-05-13] MEDS ORDERED: fentaNYL 100 MCG/2 ML INJECTION As Ordered ONE (09:49)
[2024-05-13] MEDS: fentaNYL 100 MCG/2 ML INJECTION IV PRN (09:50)
[2024-05-13] MEDS: PRENATAL VITAMINS CHEWABLE TABLET PO SCH (13:21)
[2024-05-13] MEDS: KETOROLAC 30 MG/ML 1ML VIAL IV SCH (15:05)
[2024-05-13] MEDS: PERCOCET 5MG/325MG TAB PO PRN (17:15)
[2024-05-13] MEDS: LR 500 ML IV STA (21:44)
[2024-05-14 01:51] VITALS: BP 124/72; O2SAT 98
[2024-05-14 06:15] VITALS: BP 129/88; O2SAT 98
[2024-05-14 06:53] LABS: HEMATOCRIT 33.2 % (36.0-47.0); HEMOGLOBIN 11.5 g/dl (12.0-15.5); MEAN CORPUSCULAR HEMOGLOBIN 33.1 pg (27.0-33.0); MEAN CORPUSCULAR HGB CONC 34.6 g/dl (32.0-36.5); MEAN CORPUSCULAR VOLUME 95.7 fl (80.0-96.0); PLATELET COUNT, AUTOMATED 231 10^3/uL (150-450); RED BLOOD COUNT 3.47 10^6/uL (4.00-5.40); WHITE BLOOD COUNT 13.7 10^3/uL (4.0-10.0)
[2024-05-14] MEDS: ONDANSETRON 4MG 2ML VIAL IV PRN (07:24)
[2024-05-14] MEDS: IBUPROFEN 800 MG TAB PO SCH (10:01)
[2024-05-14 11:55] VITALS: BP 146/83; O2SAT 98
[2024-05-14 18:00] VITALS: BP 141/93; O2SAT 97
[2024-05-14] MEDS: PERCOCET 5MG/325MG TAB PO PRN (19:34)
[2024-05-14 22:40] VITALS: BP 134/82; O2SAT 98
[2024-05-15 02:00] VITALS: BP 136/83; O2SAT 98
[2024-05-15 06:00] VITALS: BP 136/85; O2SAT 98
[2024-05-15] MEDS ORDERED: MEASLES,MUMPS,RUBELLA VACCINE INJ (MMR-II) SC.IMMUN ONE (09:00)
[2024-05-15] MEDS: FLUZONE VACCINE TRIVALENT PF(2024-25) 0.5ML SYRINGE IM.IMMUN ONE (09:00)
[2024-05-15 10:00] VITALS: BP 134/87; O2SAT 98
== END 2024-05-15 10:47 | disposition home or self-care (01) | DRG 540 ==
LOC: M LDI 05:47 → M OBS 10:19
PROVIDERS: ADMIT Obstetrics & Gynecology; ATTEND Obstetrics & Gynecology
PROC: 10D00Z1 Extraction of Products of Conception, Low, Open Approach (ICD-10-PCS; principal; 2024-05-13 07:30)
DX: O34.211 Maternal care for low transverse scar from previous cesarean delivery (principal); I10 Essential (primary) hypertension; O10.92 Unspecified pre-existing hypertension complicating childbirth; Z37.0 Single live birth; Z3A.37 37 weeks gestation of pregnancy; O09.523 Supervision of elderly multigravida, third trimester; E28.2 Polycystic ovarian syndrome; O99.284 Endocrine, nutritional and metabolic diseases complicating childbirth; Z79.899 Other long term (current) drug therapy; J45.909 Unspecified asthma, uncomplicated; O99.52 Diseases of the respiratory system complicating childbirth; Z79.82 Long term (current) use of aspirin

== ENCOUNTER → 2025-05-17 | Outpatient (CLI) | payer OTHER ==
[~2025-05-17] MED LIST changes: +COLA100C5 PO
[2025-05-17 18:07] LABS: CALCIUM LEVEL 9.6 MG/DL (8.5-10.1); CARBON DIOXIDE LEVEL 27 MMOL/L (20-31); CHLORIDE LEVEL 104 MMOL/L (98-107); CREATININE FOR GFR 0.79 MG/DL (0.55-1.30); GLOMERULAR FILTRATION RATE > 90.0 (>60); POTASSIUM SERUM 4.3 MMOL/L (3.5-5.1); SODIUM LEVEL 140 MMOL/L (136-145)
== END ==
LOC: M PLALAB 16:43
PROVIDERS: ATTEND Physician Assistant
DX: E28.2 Polycystic ovarian syndrome (principal)